=== PATIENT | male | born 1975 | race American Indian/Alaskan Native ===

== ENCOUNTER 2025-02-07 14:29 | Outpatient (AMB) | payer OTHER, SELFPAY ==
--- OUTSIDE RECORDS SUMMARY | 2025-02-07 14:34 | XMS_ITS | Clinical Summary ---
Author Organization [facility] Address [address] [place] [id number] Phone Care Team Providers Care Industrial Eng Name Role Phone Pcp, Unknown Primary Care Provider Unavailabl e Allergies No known active allergies Medications No known medications Active Problems No known active problems Social History Tobacco Use Types Packs/Day Years Used Date Smoking Tobacco: Former Smokeless Tobacco: Never Alcohol Use Standard Drinks/Week Comments Never 0 (1 standard drink = 0.6 oz pur e alcohol) Education Answer Date Recorded Are you interested in more education? Not on concepción e 01/18/2023 Are you concerned about learning? Not on file 01/18/2023 No 01/18/2023 No 01/18/2023 Digital Access Answer Date Recorded No 02/16/2023 No 02/16/2023 No 02/16/2023 Reliable internet access at home? Not on file 02/16/2023 Device with a working camera? Not on file Sex and Gender Information Value Date Recorded Sex Assigned at Not on file Legal Sex Male 8:57 AM EDT Gender Identity Not on file Sexual Orientation Not on file Last Filed Vital Signs Vital Sign Reading Time Taken Comments Blood Pressure 124/78 05/30/2022 11:55 AM EDT Pulse 76 05/30/2022 11:55 AM EDT Temperature - - Respiratory Rate 18 05/30/2022 11:55 AM EDT Oxygen Saturation 99% 05/30/2022 11:55 AM EDT Inhaled Oxygen Concentration - - Weight 90.7 kg (200 lb) 05/30/2022 11:55 AM EDT Height 167.6 cm (5' 6 ) 05/30/2022 11:55 AM EDT Body Mass Index 32.28 05/30/2022 11:55 AM EDT Plan of Treatment Health Maintenance Due Date Last Done Comments LIPID PANEL 1976 DEPRESSION SCREENING 1988 SMOKING Hx and SMOKELESS TOBACCO SCREENING 1989 HEPATITIS B SCREENING 1994 HEPATITIS C SCREENING 1994 HIV ONE-TIME SCREENING (18-6 5 YEARS) 1994 HEPATITIS B VACCINES (1 of 3 - 19+ 3-dose series) 1995 SCREENING FOR DIABETES 2011 COLOGUARD 2021 COLONOSCOPY 2021 COLORECTAL CANCER SCREENING 2021 FIT TEST 2021 FOBT 2021 SIGMOIDOSCOPY 2021 VIRTUAL COLONOSCOPY 2021 INFLUENZA VACCINE (#1) 2024 COVID-19 VACCINE (2023-2 5 season) 2024 04/03/2022, 03/15/2021, 02/09/2021 Adult Td,Tdap Booster 02/06/2032 02/05/2022 HEPATITIS A VACCINES Aged Out No long er eligible based on patient's age to complete this topic HIB VACCINES Aged Out No longer eligi ble based on patient's age to complete this topic MENINGOCOCCAL VACCINES (ACWY) Aged Out No longer eligible based on patient's age to complete this topic PNEUMOCOCCAL VACCINES (0-49 years) Aged Out No longer eligible b ased on patient's age to complete this topic Medical Devices Not on file Insurance [facility] PPO BLUE CROSS OUT OF STATE PPO BLUE CROSS OUT OF STATE PPO BLUE CROSS OUT OF STATE PPO BLUE CROSS OUT OF STATE PPO BLUE CROSS OUT OF STATE PPO BLUE CROSS OUT OF STATE PPO BLUE CROSS OUT OF STATE PPO BLUE CROSS OUT OF STATE PPO Care Teams Industrial Eng Relationship Specialty Start Date End Date Pcp, Unknown PCP - General 06/07/21 Additional Source Comments The information contained in this document represents components of the legal health record. It is not the complete legal health record.[facility]
--- NOTE | 2025-02-07 14:35 | MHC.OFFVIS ---
Vital Signs 02/07/25 14:47 Height 5 ft 6 in Weight 200 lb BMI 32.3 BP 147/65 H Blood Pressure Location Lt brachial Position Sitting Pulse 78 Pulse Oximetry (%) 98 Oxygen Delivery Method Room Air Intake Visit Reasons: trouble swallowing Intake Note: Patient new consult for trouble swallowing and GERD. Patient cc: throat sore with daily trouble swallowing solid and liquid, and GERD. 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 Patient was sent to us by his PCP. Patient reports epigastric pain and trouble swallowing. Patient reports trouble swallowing mostly solids. No issues with fluids. Patient reports acid reflux with dyspepsia without odynophagia. Patient is not on any PPI. Patient reports postprandial abdominal bloating. Reports that he is moving his bowels without any issues. Denies melena, hematochezia, unintentional weight loss or ribbon like stools. [facility] Surgical History (Updated 02/07/25 @ 14:52 by Rafia Arce) Hx of lithotripsy History of surgery on wrist Social History (Updated 02/07/25 @ 14:40 by Rafia Arce) Household Members: Family Alcohol intake: never Patient Tobacco Use Status: Never used Tobacco Use of substances other than those prescribed or required for medical reasons: No Review of Systems Const Denies weight gain and Denies weight loss ENT Reports no additional complaints, Reports dysphagia and Denies odynophagia Card Reports no additional complaints Resp Reports no additional complaints GI Reports abdominal pain (Epigastric), Denies belching, Denies melena, Reports bloating, Denies change in bowel habits, Reports dysphagia, Denies excessive flatus, Denies dyspepsia, Reports heartburn, Denies diarrhea, Denies loose stools, Denies nausea, Denies odynophagia and Denies vomiting Reports no additional complaints Musc Reports no additional complaints Neuro Reports no additional complaints Psych Reports no additional complaints Endo Reports no additional complaints Physical Exam Vital Signs: Last Vital Signs Pulse 78 02/07/25 14:47 BP 147/65 H 02/07/25 14:47 Pulse Ox 98 02/07/25 14:47 Oxygen Delivery Method Room Air 02/07/25 14:47 BMI result Body Mass Index 32.3 Const General: healthy appearing, no acute distress and well developed Nutritional Appearance: well nourished and obese Orientation/consciousness: patient oriented x3 Resp Effort & Inspection: normal respiratory effort, able to speak in complete sentences, no tracheal deviation and symmetric chest movement Auscultation: clear to auscultation bilaterally Cardio Rate: regular rate GI Inspection: Yes normal to inspection, No distended and Yes obesity Palpation (GI): Soft to palpation, not firm, nontender and No hepatosplenomegaly present Auscultation: normal bowel sounds General: Yes no CVA tenderness Back/Spine/Pelvis Back: no CVA tenderness Skin General skin exam: elasticity normal, turgor normal and dry skin Neuro General: patient oriented x3 Psych Appearance: grossly normal Mental Status: mental status grossly normal Assessment & Plan Assessment & Plan (1) Postprandial epigastric pain: Code(s): R10.13 - Epigastric pain (2) Dysphagia: Code(s): R13.10 - Dysphagia, unspecified Qualifiers: Dysphagia type: pharyngoesophageal phase Qualified Code(s): R13.14 - Dysphagia, pharyngoesophageal phase (3) GERD (gastroesophageal reflux disease): Code(s): K21.9 - Gastro-esophageal reflux disease without esophagitis Qualifiers: Esophagitis presence: esophagitis presence not specified Qualified Code(s): K21.9 - Gastro-esophageal reflux disease without esophagitis Plan Patient will start taking pantoprazole in the morning and in the afternoon for 1 month and then decrease to 1 a day. He will take sucralfate at bedtime. Discussed with patient going for additional testing, however patient is not agree to any testing to be done at this time due to financial reasons. Patient reports that he has a high co-pay with his insurance. I did recommend for patient to go for upper GI series with barium swallow or endoscopy. Patient will try to call his insurance to see if he will have a co-pay for endoscopy. He is due also to go for colonoscopy. Patient will follow-up with us on as-needed basis. He is agreeable to current plan of care and verbalizes understanding of instructions. He was given the opportunity to ask questions and all questions answered. Thank you for allowing me to participate in his care Medications: New pantoprazole 40 mg PO BID 180 tabs 3RF sucralfate 1 g PO BEDTIME 90 tabs 3RF R19.7 - Diarrhea, unspecified Coding Level of Care Code New Pt Level 3 (02244) Diagnoses Postprandial epigastric pain R10.13 Pharyngoesophageal dysphagia R13.14 Dysphagia type: pharyngoesophageal phase Gastroesophageal reflux disease, unspecified whether esophagitis present K21.9 Esophagitis presence: esophagitis presence not specified Time Spent (min) 40 Comment 30 minutes spent with patient and additional 10 minutes spent reviewing his records
[2025-02-07 14:47] VITALS: BP 147/65; PULSE 78; O2SAT 98; BMI 32.3
== END 2025-02-07 15:48 | disposition home or self-care (01) ==
LOC: HO.HGI 14:30
PROVIDERS: PCP Nurse Practitioner Family; Visit Provider Nurse Practitioner Family
DX: R10.13 Epigastric pain (principal); R13.14 Dysphagia, pharyngoesophageal phase; K21.9 Gastro-esophageal reflux disease without esophagitis
CPT/HCPCS: 99203

== ENCOUNTER → 2025-02-07 14:29 | Outpatient (BNVA) | payer OTHER, SELFPAY | PROVIDERS: PCP Nurse Practitioner Family; Visit Provider Nurse Practitioner Family | DX: K21.9 Gastro-esophageal reflux disease without esophagitis (principal); R10.13 Epigastric pain; R13.14 Dysphagia, pharyngoesophageal phase; R19.7 Diarrhea, unspecified; I10 Essential (primary) hypertension | CPT/HCPCS: 99202 ==